=== PATIENT | female | born 1980 | race Caucasian/White ===

== ENCOUNTER → 2016-07-14 | Day surgery (SDC) | payer BC ==
[~2016-07-14] MED LIST: KETOROLAC TROMETHAMINE 30 MG/ML (IVP) VIAL IV PUSH ONE; LACTATED RINGER'S 1000 ML INJ 1,000 ML ONE; MIDAZOLAM HCL 2 MG/2 ML VIAL ONE; ONDANSETRON HCL 4 MG/2 ML VIAL IV PUSH ONE; PROPOFOL 200 MG/20 ML AMP IV ONE; ceFAZolin INJ 1,000 MG VIAL ONE
--- NOTE | 2016-07-17 12:55 | MP ---
cc: TRENT FONSECA M.D. DATE OF SURGERY: 07/17/2016. PREOPERATIVE DIAGNOSIS: Patient with menorrhagia and dysmenorrhea. POSTOPERATIVE DIAGNOSIS: Patient with menorrhagia and dysmenorrhea. OPERATIVE PROCEDURE PERFORMED: Diagnostic hysteroscopy, fractional D&C, endometrial ablation with the NovaSure device. SURGEON: Trent Fonseca MD. ANESTHESIA: General LMA ESTIMATED BLOOD LOSS: None. DRAINS: None. OPERATIVE FINDINGS: The patient had a retroverted uterus. The uterine cavity measured about 9.5 cm in length and 4.5 cm in width. The NovaSure generator calculated energy of 161 farris. SURGICAL SPECIMENS: Endocervical and endometrial curettings. DESCRIPTION OF THE PROCEDURE IN DETAIL: The patient had previously received Ancef as a prophylactic antibiotic given 1 gram IV. The patient then went to the operating room and was placed on the operative table placed in dorsal lithotomy position with candy-cane stirrups and sequentials were placed on the lower extremities for VTE prophylaxis. She had previously undergone general anesthesia with LMA placement. After she was carefully positioned and appropriate padding was made, a time-out was conducted and agreed by all present in the room. The patient was then prepped and draped. Exam revealed a retroverted uterus midline, well-supported. The cervix was normal. The endometrial cavity was symmetrical without any focal abnormalities. No lesions. No perforations were incurred. The cervix was secured with a single-tooth tenaculum after using a bivalve retractor. A uterine sound was placed to 9.5 cm in the posterior position. The cervix was then dilated to accommodate a rigid 5 mm hysteroscope which was used to examine the cavity as described above using normal saline on a handheld syringe. The endocervical curettings were obtained prior to the hysteroscopy and endometrial curettings were obtained after. The NovaSure device was then utilized and measurements were as stated above and it was completed in a normal time and removal of the NovaSure device was uncomplicated. Reinsertion of the hysteroscope to confirm electrodesiccation was complete. There was no perforation. No active bleeding. No hematoma. At the completion of the case, the final counts were correct. The patient was stable. She was taken to the recovery room on room air. MD SHALINI Ospina/PORFIRIO /8:05 AM /12:48 PM
== END | disposition home or self-care (01) ==
LOC: ESDC 06:07
PROVIDERS: ATTEND Obstetrics & Gynecology
DX: N92.0 Excessive and frequent menstruation with regular cycle (principal); N94.6 Dysmenorrhea, unspecified
CPT/HCPCS: 00952; 58563; 88305; J0690; J1885; J2250; J2405; J3010; J7120